=== PATIENT | female | born 1985 | race Caucasian/White ===

== ENCOUNTER 2019-08-24 12:58 | Emergency (ER) | payer OTHER, SELFPAY ==
[2019-08-24 13:08] VITALS: BP 129/80; PULSE 133; RESP 16; TEMP 38.6; O2SAT 96
--- NOTE | 2019-08-24 13:14 | ED.GENADULT ---
HPI - General Adult General Chief complaint: Upper Respiratory Infection Stated complaint: Flu like Symptoms Time Seen by Provider: 08/24/19 13:15 Source: patient Mode of arrival: ambulatory Limitations: no limitations History of Present Illness HPI narrative: 34-year-old female patient presents to the [facility] with complaints of flulike symptoms that started this morning when she woke up. Patient states that her came yesterday was diagnosed with influenza A. Patient states that she woke up this morning with fevers, chills and body aches. Denies any chest pain, shortness of breath, coughing. Patient states she has had a little bit of runny nose and stuffy nose. Patient states that she did take some ibuprofen for her symptoms this morning. Patient states that she did get a flu shot this year. Patient denies any or breast-feeding at this time. Related Data Allergies Allergy/AdvReac Type Severity Reaction Status Date / Time No Known Allergies Allergy Verified 08/24/19 13:15 Review of Systems Review of Systems: Narrative: CONSTITUTIONAL: Positive fever, chills, body aches and sweats. EYES: Denies visual changes, redness, or discharge. ENT: Positive rhinorrhea, congestion, denies sore throat, or otalgia. CARDIOVASCULAR: Denies chest pain, palpitations, or edema. RESPIRATORY: Denies cough or dyspnea. GASTROINTESTINAL: Denies abdominal pain, nausea, vomiting, or diarrhea. GENITOURINARY: Denies dysuria or hematuria. SKIN: Denies rash or itching. MUSCULOSKELETAL: Denies back pain, joint pain, or myalgia. NEUROLOGIC: Denies headache, numbness, or weakness. PSYCHIATRIC: Denies anxiety or depression. PMFSH Comments At the time of my signature I agree with nursing past medical history, surgical, social, and family history. There is no relevant family history pertinent to the presenting complaint. Exam Narrative: Exam Narrative: GENERAL: ill-appearing, well-nourished, and in no acute distress. HEAD: Normocephalic, atraumatic. No tenderness noted to frontal or maxillary sinuses on palpation EYES: PERRLA and EOMI. ENT: Nares with erythema and edema noted bilaterally, no rhinorrhea or epistaxis. Mucous membranes moist. Posterior pharynx with no erythema, tonsil enlargement, exudates or lesions present. Bilateral TMs are clear with no erythema or foreign bodies in the canal. NECK: Supple. No lymphadenopathy CHEST: Clear to auscultation. No respiratory distress. HEART: Regular rate and rhythm. No murmur heard. Normal peripheral pulses. ABDOMEN: Soft, nontender, nondistended, normal active bowel sounds. EXTREMITIES: Normal range of motion. No edema. SKIN: Warm, dry, no rash. NEURO: No focal deficits. Alert and oriented x3. Course Reevaluation(s) Reevaluation #1: Notify patient that her influenza test today is negative however given the fact that her was just diagnosed with yesterday and she started having symptoms today I am pretty sure that she does have influenza. Discussed with patient we will go ahead and start her on antivirals today see if this helps alleviate her symptoms otherwise she can be treated with Tylenol and ibuprofen as well as increase her fluids and get plenty of rest. Patient verbalized understanding denies any other questions or concerns at this time. Date: 08/24/19 Time: 13:33 Vital Signs Vital signs: Vital Signs Temperature 38.6 C H 08/24/19 13:08 Pulse Rate 133 H 08/24/19 13:08 Respiratory Rate 16 08/24/19 13:08 Blood Pressure 129/80 08/24/19 13:08 Pulse Oximetry 96 08/24/19 13:08 Temperature 38.6 C H 08/24/19 13:08 Pulse Rate 133 H 08/24/19 13:08 Respiratory Rate 16 08/24/19 13:08 Blood Pressure 129/80 08/24/19 13:08 Pulse Oximetry 96 08/24/19 13:08 Vital signs reviewed. Medical Decision Making Differential Diagnosis Differential Diagnosis: Differential diagnosis: Allergic rhinitis, chronic sinusitis, tonsillitis, acute sinusitis, infectious mon
== END 2019-08-24 13:35 | disposition home or self-care (01) ==
PROVIDERS: Emergency Provider Nurse Practitioner Family
DX: J06.9 Acute upper respiratory infection, unspecified (principal); H91.92 Unspecified hearing loss, left ear
CPT/HCPCS: 87804; 99213; G0463